=== PATIENT | male | born 1970 | race Two or more races ===

== ENCOUNTER 2023-08-01 04:48 | Emergency (ER) | payer MEDICAID, OTHER ==
[~2023-08-01] VITALS: Ht 182.9 cm; Wt 77.1 kg
[2023-08-01] MEDS ORDERED: ACETAMINOPHEN ES 500 MG TABLET ONE (08:31)
[2023-08-01] MEDS ORDERED: ALPR2TAB7 PO (08:33)
[2023-08-01] MEDS ORDERED: BICT1TAB PO (08:33)
[2023-08-01] MEDS: ACETAMINOPHEN ES 500 MG TABLET PO ONE (08:45)
[2023-08-01 08:57] LABS: BASOPHILS % (AUTO) 0.3 % (0.0-2.0); EOSINOPHILS # (AUTO) 0.1 K/uL (0.0-0.7); EOSINOPHILS % (AUTO) 0.6 % (0.0-6.0); HEMATOCRIT 44 % (39-51); LYMPHOCYTES # (AUTO) 0.8 K/uL (0.8-4.8); LYMPHOCYTES % (AUTO) 7.7 % (20.0-44.0); MEAN CORPUSCULAR HEMOGLOBIN 32 PG (26.0-33.0); MEAN CORPUSCULAR HGB CONC 34 g/dl (31.0-36.0); MEAN CORPUSCULAR VOLUME 94 fL (80-96); MONOCYTES # (AUTO) 0.6 K/uL (0.1-1.30); MONOCYTES % (AUTO) 6.1 % (2.0-12.0); NEUTROPHILS # (AUTO) 8.9 K/uL (1.8-8.9); NEUTROPHILS % (AUTO) 85.3 % (43.0-81.0); PLATELET COUNT (AUTO) 137 K/uL (150-450); RED BLOOD CELL COUNT(AUTO) 4.68 MIL/uL (4.5-6.0); RED CELL DISTRIBUTION WIDTH 13.2 % (11.5-15.0); WHITE BLOOD COUNT (AUTO) 10.5 K/uL (4.3-11.0)
[2023-08-01 09:13] LABS: BILIRUBIN,DIRECT 0.2 mg/dL (0.0-0.2); BILIRUBIN,TOTAL 0.8 mg/dL (0.2-1.0); CALCIUM, SERUM 8.9 mg/dL (8.5-10.1); POTASSIUM 3.6 mmol/L (3.5-5.1); TOTAL PROTEIN, SERUM 7.4 g/dL (6.4-8.2)
[2023-08-01 12:08] VITALS: BP 117/61; TEMP 98.3; O2SAT 99
== END 2023-08-01 12:09 | disposition home or self-care (01) ==
LOC: ER 04:50 → UNDOADMIN 11:01 → MEDSG1 11:01 → ER 12:09
DX: M54.6 Pain in thoracic spine (principal); M25.562 Pain in left knee; M25.572 Pain in left ankle and joints of left foot; R51.9 Headache, unspecified; M54.2 Cervicalgia; V89.2XXA Person injured in unspecified motor-vehicle accident, traffic, initial encounter; Y93.89 Activity, other specified; Y92.89 Other specified places as the place of occurrence of the external cause; Y99.8 Other external cause status
CPT/HCPCS: 36415; 70450-TC; 71045-TC; 72125-TC; 73564-TC; 73610-TC; 80048-TC; 80076-TC; 83690-TC; 85025-TC; G0480